=== PATIENT | female | born 1950 | race Caucasian/White ===

== ENCOUNTER 2017-08-19 10:45 | Day surgery (SDC) | payer OTHER ==
[~2017-08-19] VITALS: Ht 162.6 cm; Wt 55.3 kg
[~2017-08-19 10:45] MED LIST: ACTONEL35 MG PO; CELLCEPT250 MG PO; CLEOCIN300 MG PO; FISH OIL 1,0001 EACH PO; FISH OIL 1,2001 EAC3 PO; FLEXERIL10 MG PO; LIPITOR40 MG PO; MAGNESIUM400 M1 PO; NORVASC10 MG PO; PLAVIX75 MG PO; PRAVACHOL80 MG PO; PROGRAF0.5 MG PO; PROGRAF1 MG PO; PROTONIX40 M1 PO; Prograf PO; ROXICODONE15 MG PO; SENSIPAR60 MG PO; TOPROL XL50 MG PO
[2017-08-19 11:55] VITALS: BP 176/71
== END 2017-08-19 13:05 | disposition home or self-care (01) ==
LOC: SDC 10:45 → 2SOUTH 10:48 → SDC 13:05 → EDSTATUS 13:47 → 2SOUTH 15:31
DX: M48.02 Spinal stenosis, cervical region (principal); Z88.1 Allergy status to other antibiotic agents; Z53.09 Procedure and treatment not carried out because of other contraindication
CPT/HCPCS: J0131; J0330; J1030; J1100; J1170; J2250; J2930; J3010; S0020

== ENCOUNTER 2017-10-06 20:42 | Inpatient (IN) | payer OTHER ==
[~2017-10-06] VITALS: Ht 165.1 cm; Wt 61.4 kg
[~2017-10-06 20:42] MED LIST changes: +TACROLIMUS ANHYD1 MG PO
[2017-10-07 10:20] VITALS: BP 134/61
[2017-10-07 19:51] VITALS: BP 140/75
[2017-10-07 19:54] VITALS: BP 140/75
[2017-10-07 23:51] VITALS: BP 121/58
[2017-10-08 04:50] VITALS: BP 119/56
[2017-10-08 04:52] VITALS: BP 119/56
[2017-10-08] MEDS ORDERED: ROXICODONE15 MG PO (07:13)
[2017-10-08 07:42] VITALS: BP 133/61
== END 2017-10-08 10:32 | disposition home or self-care (01) | DRG 472 ==
LOC: ENRESERV 20:42 → 3EAST 10-07 09:01 → 2SOUTH 10-07 09:01 → ENRESERV 10-07 16:13 → 3EAST 10-07 19:16
PROVIDERS: Neurological Surgery
DX: M48.02 Spinal stenosis, cervical region (principal); M47.12 Other spondylosis with myelopathy, cervical region; Z94.0 Kidney transplant status; I50.32 Chronic diastolic (congestive) heart failure; M85.80 Other specified disorders of bone density and structure, unspecified site; M85.89 Other specified disorders of bone density and structure, multiple sites; M54.2 Cervicalgia; M54.6 Pain in thoracic spine; I11.0 Hypertensive heart disease with heart failure; E78.2 Mixed hyperlipidemia; I25.10 Atherosclerotic heart disease of native coronary artery without angina pectoris; I73.9 Peripheral vascular disease, unspecified; M81.0 Age-related osteoporosis without current pathological fracture; K21.9 Gastro-esophageal reflux disease without esophagitis; F17.210 Nicotine dependence, cigarettes, uncomplicated; Z79.01 Long term (current) use of anticoagulants; Z88.0 Allergy status to penicillin; Z88.1 Allergy status to other antibiotic agents; Z88.2 Allergy status to sulfonamides; Z88.5 Allergy status to narcotic agent; Z88.6 Allergy status to analgesic agent; Z91.040 Latex allergy status; Z91.041 Radiographic dye allergy status; Z85.3 Personal history of malignant neoplasm of breast; Z88.3 Allergy status to other anti-infective agents; Z82.62 Family history of osteoporosis
CPT/HCPCS: 72020; 72040; 76000; 85610; 85730; 86850; 86900; 86901; C1713; J0131; J0878; J1030; J1100; J1170; J1580; J2370; J2405; J2710; J2930; J3010; J3480; J7050; J7507; J7517; J7643; S0020